=== PATIENT | male | born 1960 ===

== ENCOUNTER 2021-11-12 08:15 | Inpatient (IN) | payer OTHER ==
[~2021-11-12] VITALS: Ht 152.4 cm; Wt 104.3 kg
[2021-11-12] MEDS ORDERED: COZAAR100 MG PO (13:21)
[2021-11-12] MEDS ORDERED: FENOFIBRATE160 MG PO (13:21)
[2021-11-12] MEDS ORDERED: TOPROL XL100 M1 PO (13:21)
[2021-11-12] MEDS ORDERED: LIPITOR40 MG PO (13:21)
[2021-11-12] MEDS ORDERED: PLAVIX75 MG PO (13:24)
== END 2021-11-20 14:01 | disposition home or self-care (01) | DRG 330 ==
LOC: SURH 11-17 06:48 → O/R 11-17 06:48 → SURH 11-17 08:15
PROVIDERS: ADMIT Colon & Rectal Surgery; ATTEND Colon & Rectal Surgery
PROC: 0DBP4ZZ Excision of Rectum, Percutaneous Endoscopic Approach (ICD-10-PCS; 2021-11-17)
PROC: 0DTN4ZZ Resection of Sigmoid Colon, Percutaneous Endoscopic Approach (ICD-10-PCS; principal; 2021-11-17 21:00)
DX: K57.32 Diverticulitis of large intestine without perforation or abscess without bleeding (principal); K92.1 Melena; K35.890 Other acute appendicitis without perforation or gangrene; K63.5 Polyp of colon; I11.9 Hypertensive heart disease without heart failure; E11.9 Type 2 diabetes mellitus without complications; Z79.4 Long term (current) use of insulin; Z20.822 Contact with and (suspected) exposure to COVID-19; Z95.1 Presence of aortocoronary bypass graft; I25.10 Atherosclerotic heart disease of native coronary artery without angina pectoris